=== PATIENT | male | born 1955 | race American Indian/Alaskan Native ===

== ENCOUNTER 2021-06-07 07:40 | Emergency (ER) | payer MEDICARE ==
--- NOTE | 2021-06-07 08:46 | Emergency Department Report ---
ED Extremity Problem HPI - General Chief complaint: Extremity Injury, Lower Stated complaint: PAIN LOWER LF LEG Time Seen by Provider: 06/07/21 08:00 Source: EMS Mode of arrival: Stretcher Limitations: No Limitations - History of Present Illness Initial comments: 66-year-old male with a history of chronic bilateral lower extremity venous stasis with chronic wound on the left lower lateral leg who now presents with surrounding erythema and warmth for the last 3 to 4 days. Patient said for the last 6 months is been managing the wound by himself. He has not seen any wound management. No fever or chills reported. No other modifying or positive fac tors reported. Severity scale (0 -10): 6 - Related Data Home Medications Medication Instructions Recorded Confirmed Last Taken Aspirin EC [Halfprin EC] 81 mg PO QDAY 06/07/21 06/07/21 06/06/21 Furosemide [Lasix] 20 mg PO QDAY 06/07/21 06/07/21 06/06/21 Potassium Chloride [K-Dur] 20 meq PO QDAY 06/07/21 06/07/21 06/06/21 Simvastatin 40 mg PO QHS 06/07/21 06/07/21 06/06/21 lisinopriL [Lisinopril] 20 mg PO DAILY 06/07/21 06/07/21 06/06/21 Previous Rx's Medication Instructions Recorded Last Taken Type Clindamycin [Clindamycin CAP] 300 mg PO Q8HR 10 Days #60 capsule 06/07/21 Unknown Rx Allergies Allergy/AdvReac Type Severity Reaction Status Date / Time No Known Allergies Allergy Verified 06/07/21 07:47 ED Review of Systems ROS: Stated complaint: PAIN LOWER LF LEG Other details as noted in HPI Comment: All other systems reviewed and negative Respiratory: denies: shortness of breath Cardiovascular: edema. denies: chest pain Skin: other (Venous stasis with chronic left lower leg ulcer) ED Past Medical Hx - Past Medical History Hx Hypertension: Yes Hx Arthritis: Yes Additional medical history: high cholesterol - Social History Smoking Status: Never Smoker Substance Use Type: None - Medications Home Medications: Home Medications Medication Instructions Recorded Confirmed Last Taken Type Aspirin EC [Halfprin EC] 81 mg PO QDAY 06/07/21 06/07/21 06/06/21 History Clindamycin [Clindamycin CAP] 300 mg PO Q8HR 10 Days #60 capsule 06/07/21 Unknown Rx Furosemide [Lasix] 20 mg PO QDAY 06/07/21 06/07/21 06/06/21 History Potassium Chloride [K-Dur] 20 meq PO QDAY 06/07/21 06/07/21 06/06/21 History Simvastatin 40 mg PO QHS 06/07/21 06/07/21 06/06/21 History lisinopriL [Lisinopril] 20 mg PO DAILY 06/07/21 06/07/21 06/06/21 History ED Physical Exam - General Limitations: No Limitations General appearance: alert, in no apparent distress - Head Head exam: Present: normal inspection - Eye Eye exam: Present: normal appearance - ENT ENT exam: Present: normal exam, normal orophraynx - Neck Neck exam: Present: normal inspection - Respiratory Respiratory exam: Present: normal lung sounds bilaterally. Absent: respiratory distress, wheezes - Cardiovascular Cardiovascular Exam: Present: regular rate, normal rhythm, normal heart sounds - GI/Abdominal GI/Abdominal exam: Present: soft, normal bowel sounds. Absent: tenderness - Extremities Exam Extremities exam: Present: normal capillary refill, pedal edema, other (Venous stasis with chronic left lower leg ulcer) - Expanded Lower Extremity Exam Left Lower Leg exam: Present: tenderness, swelling, erythema Ankle exam: Present: swelling (Venous stasis with chronic left lower leg ulcer) - Back Exam Back exam: Present: normal inspection. Absent: tenderness ED Course Vital Signs 06/07/21 06/07/21 06/07/21 07:46 08:31 09:03 Temperature 97.9 F Pulse Rate 87 87 Respiratory 16 14 Rate Blood Pressure 127/81 Blood Pressure 108/58 [Right] O2 Sat by Pulse 99 98 97 Oximetry - Reevaluation(s) Reevaluation #1: 06/07/21 08:47 Here with left lower leg chronic ulcer and noted with surrounding blanchable erythema with venous stasis--we will go ahead and draw CBC, CMP and coag profile and start patient on antibiotics. Will consider disposition based on the electrolytes or the extent of the infection. Given 1 g of Rocephin. Reevaluation #2: 06/07/21 09:57 After reviewing this patient's labs noted to be unremarkable and reassuring no sign of infection or electrolyte abnormality.. We will safely discharge this patient home on antibiotics for a cellulitis and close follow-up with his primary doctor for wound care. And warning to return to the emergency room if symptoms worsen. ED Medical Decision Making - Lab Data Result diagrams: 06/07/21 08:48 06/07/21 08:48 Critical care attestation.: If time is entered above; I have spent that time in minutes in the direct care of this critically ill patient, excluding procedure time. ED Disposition Clinical Impression: Cellulitis of left lower leg Chronic ulcer of left leg Qualifiers: Non-pressure ulcer stage: unspecified non-pressure ulcer stage Qualified Code(s): L97.929 - Non-pressure chronic ulcer of unspecified part of left lower leg with unspecified severity Disposition: 01 HOME / SELF CARE / HOMELESS Is pt being admited?: No Does the pt Need Aspirin: No Condition: Stable Instructions: Cellulitis, Adult, [id number], Venous Ulcer, [id number] Additional Instructions: Take and complete your antibiotics as prescribed to help your symptoms It is very important that you call and follow-up with your primary doctor in the next 2 to 3 days for your Ulcer/wound management Please do not hesitate to call or return to emergency room if your symptoms worsen Prescriptions: Clindamycin [Clindamycin CAP] 300 mg PO Q8HR 10 Days #60 capsule
[2021-06-07] MEDS ORDERED: cefTRIAXone/NS 1 GM/50 ML 1 GM/50 ML BAG IV ONE (08:49)
[2021-06-07 09:12] LABS: Basophils % (Auto) 0.3 % (0.0-1.8); Eosinophils # (Auto) 0.1 K/mm3 (0.0-0.4); Eosinophils % (Auto) 1.1 % (0.0-4.3); Hematocrit 40.3 % (35.5-45.6); Hemoglobin 13.3 gm/dl (11.8-15.2); Lymphocytes # (Auto) 1.8 K/mm3 (1.2-5.4); Lymphocytes % (Auto) 24.9 % (13.4-35.0); Mean Corpuscular HGB Conc 33 % (32-34); Mean Corpuscular Volume 85 fl (84-94); Monocytes # (Auto) 0.5 K/mm3 (0.0-0.8); Monocytes % (Auto) 6.2 % (0.0-7.3); Platelet Count 335 K/mm3 (140-440); Red Blood Count 4.74 M/mm3 (3.65-5.03); Red Cell Distribution Width 15.8 % (13.2-15.2)
[2021-06-07 09:26] LABS: INR 0.92 (0.87-1.13)
[2021-06-07 09:27] LABS: Partial Thromboplastin Time 27.4 Sec. (24.2-36.6)
[2021-06-07 09:36] LABS: Alanine Aminotransferase 10 units/L (7-56); Albumin 3.6 g/dL (3.9-5); BUN/Creatinine Ratio 17; Blood Urea Nitrogen 19 mg/dL (9-20); Hemolysis Index 4
[2021-06-07 10:37] VITALS: BP 103/69
== END 2021-06-07 10:35 | disposition home or self-care (01) ==
LOC: ED 07:40
DX: L03.116 Cellulitis of left lower limb (principal); L97.929 Non-pressure chronic ulcer of unspecified part of left lower leg with unspecified severity; I10 Essential (primary) hypertension
CPT/HCPCS: 36415; 80053; 85025; 85610; 85730; 96365; 99284; J0696; 99283